=== PATIENT | female | born 1960 ===

== ENCOUNTER 2017-03-07 16:50 | Emergency (ER) | payer MEDICAID, OTHER ==
[2017-03-07 16:50] VITALS: BMI 29.4
[2017-03-07 17:40] VITALS: BP 149/92; PULSE 79; RESP 18; TEMP 98.2; O2SAT 95
--- NOTE | 2017-03-07 18:55 | C.PDOC ---
History Of Present Illness 56 y/o female presents to the ED s/p fall. Pt states she tripped and fell, landing on bilateral knees and caught self with bilateral hands; "legs flew over my body." Pt now complains of bilateral knee pain, R>L, bilateral wrist pain, left elbow pain and right neck pain. PMHx includes chronic knee pain, osteoporosis, arthritis. Pt denies LOC, vomiting, abdominal pain, back pain, weakness, numbness or any other complaints. Allergies: Enriqueta D, mushrooms. - HPI Time Seen by Provider: 03/07/17 18:29 Chief Complaint (Nursing): Trauma History Per: Patient History/Exam Limitations: no limitations Onset/Duration Of Symptoms: Hrs Severity: Moderate Recent travel outside of the [place]: No - Fall Fall:Prior To Injury: Tripped Past Medical History Reviewed: Historical Data, Nursing Documentation, Vital Signs Vital Signs: Last Vital Signs Temp 98.2 F 03/07/17 17:36 Pulse 79 03/07/17 17:36 Resp 18 03/07/17 17:36 BP 149/92 H 03/07/17 17:36 Pulse Ox 95 03/07/17 20:41 - Medical History PMH: Anemia, Arthritis, Asthma, Back Problems (SCOLIOSIS), Depression, HTN, Hyperlipidemia - [facility] Procedures INJECT/INFUSE NEC (11/20/14) Family History: States: Unknown Family Hx - Social History Hx Tobacco Use: Yes (<1 PPD) Hx Alcohol Use: No Hx Substance Use: No - Immunization History Hx Tetanus Toxoid Vaccination: No Hx Influenza Vaccination: Yes Hx Pneumococcal Vaccination: No Review Of Systems Except As Marked, All Systems Reviewed And Found Negative. Cardiovascular: Negative for: Chest Pain Respiratory: Negative for: Shortness of Breath Gastrointestinal: Negative for: Vomiting, Abdominal Pain Musculoskeletal: Positive for: Neck Pain (right), Other (bilateral knee pain, bilateral wrist pain, left elbow pain). Negative for: Back Pain Neurological: Negative for: Weakness, Numbness Physical Exam - Physical Exam Appears: Non-toxic, No Acute Distress Skin: Warm, Dry, No Rash Head: Atraumatic, Normacephalic, No Swelling, No Abrasion (2 abrasions to right forehead), No Laceration Eye(s): bilateral: PERRL Nose: Normal, No Epistaxis, No Deformity Lips: Normal Appearing, No Swelling, No Contusion, No Abrasion, No Laceration Neck: Normal ROM, Paracervical Tenderness (mild right sided), Supple Chest: Symmetrical, No Tenderness Cardiovascular: Rhythm Regular, No Murmur Respiratory: Normal Breath Sounds, No Rales, No Rhonchi, No Wheezing Gastrointestinal/Abdominal: Soft, No Tenderness Back: No Vertebral Tenderness Extremity: Capillary Refill (<2 seconds), No Deformity, Other (Left posterior elbow tenderness, FROM. 2 abrasions to bilateral wrists, FROM. Abrasions to bilateral knees with mild swelling, decreased ROM due to pain) Pulses: Left Radial: Normal, Right Radial: Normal, Left Dorsalis Pedis: Normal, Right Dorsalis Pedis: Normal Neurological/Psych: Oriented x3, Normal Motor, Normal Sensation ED Course And Treatment O2 Sat by Pulse Oximetry: 95 (on room air) Pulse Ox Interpretation: Normal Medical Decision Making Medical Decision Making: Plan: XR bilateral knees, XR left elbow, toradol, tylenol Disposition - Disposition Referrals: [facility] [Outside] Noe Woodard MD [Staff Provider] - Disposition: HOME/ ROUTINE Disposition Time: 20:39 Condition: GOOD Additional Instructions: Follow up with the medical doctor within 1-2 days. Return if worsened. Prescriptions: Naproxen [Naprosyn] 500 mg PO BID #20 tab traMADol [Ultram] 50 mg PO Q6 PRN #20 tab PRN Reason: Pain Instructions: Knee Sprain (ED) - Clinical Impression Clinical Impression: Knee sprain, Elbow contusion, Wrist sprain - PA / [employer] / Resident Statement MD/DO has reviewed & agrees with the documentation as recorded. - Scribe Statement The provider has reviewed the documentation as recorded by the Anu Delacruz All medical record entries made by the Anu were at my direction and personally dictated by me. I have reviewed the chart and agree that the record accurately reflects my personal performance of the history, physical exam, medical decision making, and the department course for this patient. I have also personally directed, reviewed, and agree with the discharge instructions and disposition.
--- NOTE | 2017-03-08 10:49 | RAD ---
PROCEDURE: Radiographs of the left elbow. HISTORY: elbow injury COMPARISON: No prior. FINDINGS: BONES: Bone alignment and mineralization are normal. There is no acute displaced fracture or bone destruction. JOINTS: Normal. No osteoarthritis. SOFT TISSUES: Normal. JOINT EFFUSION: None. OTHER FINDINGS: None IMPRESSION: No acute displaced fracture or dislocation.
--- NOTE | 2017-03-08 11:37 | RAD ---
PROCEDURE: Bilateral Knee Radiographs. HISTORY: Fall, injury to bilateral knees COMPARISON: 02/16/2016. FINDINGS: BONES: Right Knee: No acute fracture or bone destruction. There is mild degenerative spurring in the patella. Left Knee: No acute fracture or bone destruction. There is mild degenerative spurring in the patella JOINTS: Right Knee: Mild degenerative osteoarthrosis in the medial compartment. Left knee: Mild degenerative osteoarthrosis in the medial compartment. SOFT TISSUES: Right Knee: Normal. Left Knee: Normal. JOINT EFFUSION: Right Knee: None. Left Knee: None. OTHER FINDINGS: None. IMPRESSION: No acute displaced fracture or dislocation. Mild degenerative osteoarthrosis in the medial compartments.
== END 2017-03-07 20:49 | disposition home or self-care (01) ==
LOC: C.ER 16:50
DX: S83.90XA Sprain of unspecified site of unspecified knee, initial encounter (principal); W01.0XXA Fall on same level from slipping, tripping and stumbling without subsequent striking against object, initial encounter; Y93.9 Activity, unspecified; Y92.9 Unspecified place or not applicable
CPT/HCPCS: 73080; 73562; 96372; 99285; J1885